=== PATIENT | male | born 1955 | race Hispanic/Latino ===

== ENCOUNTER → 2022-12-03 | Outpatient (CLI) | payer OTHER | END | disposition home or self-care (01) | LOC: SHCH 09:04 | PROVIDERS: ATTEND Internal Medicine Cardiovascular Disease | DX: I65.23 Occlusion and stenosis of bilateral carotid arteries (principal) | CPT/HCPCS: 93880 ==

== ENCOUNTER → 2024-08-09 | Outpatient (CLI) | payer OTHER ==
[~2024-08-09] MED LIST: APIX5TAB PO; ATOR40TA71 PO; DILT60TA3 PO; FAMO20TA8 PO; FURO40TA5 PO; LEVO150 PO; LINA5TAB PO; LISI10TA24 PO; METO-409 PO; TAMS-1 PO
--- NOTE | 2024-08-09 18:40 | HMCSR ---
APPROVED REPORT Right Lower Extremity Venous Study for DVT., Venous Competence. Vein Imaging CFV (R): Normal flow, augmentation and compression. No evidence of DVT, Diameter 14.1 mm SFJ (R): Normal flow, augmentation and compression. No evidence of DVT. FEM (R): Normal flow, augmentation and compression. No evidence of DVT. POP (R): Normal flow, augmentation and compression. No evidence of DVT. DFV (R): Normal flow, augmentation and compression. No evidence of DVT. PTV (R): Normal flow, augmentation and compression. No evidence of DVT. Peroneals (R): Normal flow, augmentation and compression. No evidence of DVT. GAS (R): Normal flow, augmentation and compression. No evidence of DVT. CFV (L): Normal flow, augmen tation and compression. No evidence of DVT. Technologist Impression The deep veins of the right lower extremity appear patent and compressible without evidence of thromb us. Pulsatile waveforms noted. RGSV Junction 5.3 mm 0 ms Mid thigh 3.4 mm 0 ms Knee 3.6 mm 0 ms Mid- calf 2.0 mm 0 ms RSSV Prox 2.3 mm 0 ms Mid 2.6 mm 0 ms Conclusion As above. Conclusion As above.
== END | disposition home or self-care (01) ==
LOC: SHCH 10:56
PROVIDERS: ATTEND Internal Medicine Cardiovascular Disease
DX: R60.9 Edema, unspecified (principal)
CPT/HCPCS: 93971

== ENCOUNTER → 2024-11-11 | Outpatient (CLI) | payer OTHER ==
--- NOTE | 2024-11-11 14:39 | HMCSR ---
APPROVED REPORT Height: 5 ft 6in Weight: 210 lbs TEST INDICATIONS I25.5 ISCHEMIC CARDIOMYOPATHY The imaging protocol used to acquire images was Rest Tc-99m/stress Tc-99m 1 day Consent: The procedure was explained and understood by the patient. Informerd consent was witnessed Liza Mejia RN First, low dose rest was performed then high dose stress. RESTING DATA: The resting ekg shows: Atrial Fibrillation Rest SPECT myocardial perfusion imaging was performed in supine position 87 minutes following the int ravenous injection of 12.2 mCi of Tc-99 Sestamibi. Time of rest injection: 08:40: Date: 11/11/2024 Time of rest imagin:07: Date: 11/11/2024 PHARMACOLOGIC STRESS: Pharmacologic stress test was performed by injecting regadenoson 0.4 mg IV push followed by the intra venous injection of 31.0 mCi of Tc-99 Sestamibi. Time of stress injection: 11:10: Date: 11/11/2024 Time of stress imagin:29: Date: 11/11/2024 Heart Rate at time of stress injection: 106 bpm. Gated Stress SPECT was performed 79 minutes after stress injection. The images were gated to evaluate regional wall motion and calculate left ventricular ejection fracti on. STRESS DETAILS Reason for Termination: Infusion complete Stress Symptoms: Nausea Max HR Achieved: 107 bpm % of APMHR Achieved: 71 Max Blood Pressure: 139/87 mmHg Stress ECG: Atrial Fibrillation Conclusion Inferior infarct Mild anterior ischemia Mild apical ischemia Dilated LV at rest and stress Infeiror hypokinesis No increased lug uptake LV ejection fraction 33%
[2024-11-11] MEDS: REGADENOSON 0.4 MG/5 ML PF SYG IVP ONE (15:50)
== END | disposition home or self-care (01) ==
LOC: SHCH 08:20
PROVIDERS: ATTEND Internal Medicine Cardiovascular Disease
DX: I48.91 Unspecified atrial fibrillation (principal); I25.9 Chronic ischemic heart disease, unspecified; I25.5 Ischemic cardiomyopathy; I50.22 Chronic systolic (congestive) heart failure; I99.8 Other disorder of circulatory system
CPT/HCPCS: 78452; 93017; J2785; A9500 ×2

== ENCOUNTER 2025-01-08 05:43 | Day surgery (SDC) | payer OTHER ==
[2025-01-06 10:17] LABS: BASOPHILS # (AUTO) 0.06 K/uL (0.00-0.20); BASOPHILS % (AUTO) 0.8 % (0.0-5.0); EOSINOPHILS # (AUTO) 0.19 K/uL (0.00-0.70); EOSINOPHILS % (AUTO) 2.4 % (0.0-8.0); HEMATOCRIT 46.1 % (42-54); IMMATURE GRANULOCYTE ABSOLUTE 0.04 K/uL (0-1); LYMPHOCYTES % (AUTO) 25.7 % (21.0-51.0); MEAN CORPUSCULAR HEMOGLOBIN 27.2 pg (27.0-33.0); MEAN CORPUSCULAR HGB CONC 31.2 g/dL (32.0-36.0); MONOCYTES # (AUTO) 0.5 K/uL (0.1-1.0); MONOCYTES % (AUTO) 6.5 % (3.0-13.0); NEUTROPHILS % (AUTO) 64.1 % (40.0-77.0); PLATELET COUNT (AUTO) 330 K/uL (130-400); RED CELL DISTRIBUTION WIDTH 23.8 % (11.0-15.5); WHITE BLOOD COUNT (AUTO) 7.8 K/uL (4.8-10.8)
[2025-01-06 10:22] LABS: APPEARANCE,URINE CLEAR (CLEAR); BILIRUBIN,URINE NEGATIVE (NEGATIVE); COLOR,URINE YELLOW (YELLOW); GLUCOSE, URINE (UA) NEGATIVE (NEGATIVE); KETONES,URINE NEGATIVE (NEGATIVE); LEUKOCYTE ESTERASE ,URINE NEGATIVE Leu/uL (NEGATIVE); NITRATE,URINE NEGATIVE (NEGATIVE); OCCULT BLOOD,URINE NEGATIVE (NEGATIVE); PH,URINE 5.5 (5.0-8.0); PROTEIN,URINE NEGATIVE (NEGATIVE); UROBILINOGEN,URINE 0.2 mg/dL (0.2-1.0)
[2025-01-06 10:24] VITALS: BP 134/82; PULSE 141; RESP 18; TEMP 97.8
[2025-01-06 10:28] LABS: CREATININE 1.3 mg/dL (0.5-1.3); INR 1.12 (0.85-1.15); PROTHROMBIN TIME 11.7 SEC (9.6-11.6)
[2025-01-06 10:29] LABS: PARTIAL THROMBOPLASTIN TIME 30.1 SEC (26.3-35.5)
[2025-01-06 10:44] LABS: ADD UA MICROSCOPIC NO
[2025-01-06 11:24] LABS: B-TYPE NATRIURETIC PEPTIDE 293 pg/mL (0-100)
--- NOTE | 2025-01-06 11:52 | EKG ---
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1955 Requested By: SILAS SIU Order Number: [id number] Reading MD: Malathi Kenney Measurements Intervals [place] Rate: 141 P: 0 NM: 0 QRS: -35 QRSD: 114 T: -7 QT: 340 QTc: 522 Interpretive Statements Atrial fibrillation with rapid ventricular response Incomplete right bundle branch block Inferior infarct, old Prolonged QT interval Compared to ECG 10/25/2023 20:00:53 Incomplete right bundle-branch block now present Prolonged QT interval now present Myocardial infarct finding still present Electronically Signed On 01-06-2025 12:24:32 CDT by Malathi Kenney Please click the below link to view image of tracing.
--- NOTE | 2025-01-06 11:57 | HMCIMG ---
CHEST 1VW HISTORY: Preop COMPARISON: 10/30/2023 FINDINGS: A frontal projection of the chest was obtained. Prominent interstitial markings are seen with possible superimposed infiltrates. The heart is borderline enlarged. Degenerative changes are seen. Aortic calcifications are seen. IMPRESSION: 1. Prominent interstitial markings are seen with possible superimposed infiltrates.
--- NOTE | 2025-01-07 11:41 | NUR ---
RE: LABS/CXR REPORTED CXR RESULTS AND BUN 17/CREAT 1.3 TO CHET GAMA NP. NO NEW ORDERS RECEIVED.
[~2025-01-08] VITALS: Ht 165.1 cm; Wt 91.6 kg
[2025-01-08] VITALS (10 sets, daily range): BP systolic 115–142; BP diastolic 65–89; PULSE 115–142; RESP 13–21; TEMP 97.1–97.2
[~2025-01-08 05:43] MED LIST changes: +AMIO200T68 PO; +DILT120C78 PO; -DILT60TA3 PO; -FAMO20TA8 PO; -FURO40TA5 PO; -LEVO150 PO; -LISI10TA24 PO; +METO5TAB7 PO; +SPIR100T5 PO; -TAMS-1 PO; +TAMS-55 PO
[2025-01-08] MEDS: 0.9%NACL 1000ML 1,000 ML IV SCH (06:45)
[2025-01-08] MEDS ORDERED: HEParin 10,000 UNIT/10ML (1,000 UNIT/ML) VIAL ONE (07:06)
[2025-01-08] MEDS ORDERED: IOHEXOL 350 MG/ML 100ML INFUS..BTL IV ONE (07:06)
[2025-01-08] MEDS ORDERED: LIDOCAINE HCL 400MG/20ML VIAL ONE (07:06)
[2025-01-08] MEDS ORDERED: HEParin-NS 1,000 UNIT/500 ML 1,000 ML IV ONE (07:06)
[2025-01-08] MEDS ORDERED: MIDAZOLAM HCL 1 MG/ML 2ML VIAL ONE (07:34)
[2025-01-08] MEDS ORDERED: IOHEXOL-350 75 ML VIAL IV ONE (07:45)
--- NOTE | 2025-01-08 08:22 | PRN ---
Cath Procedure Report CATH PROCEDURE REPORT CARDIAC CATHETERIZATION REPORT Date of Service: Jan 08, 2025 After informed consent the patient was prepped and draped in the usual fashion. He received 1 mg of Versed for conscious sedation. Received 16 cc of 2% xylocaine in the right inguinal area. A six [place] sheath was introduced into the right femoral artery. A Irene four right six [place]ian diagnostic catheter w as advanced over guidewire to the aortic root. Wire was removed and catheter engaged into the [employer] right coronary artery which was visualized in multiple planes. The catheter was removed and a Irene four left six Liberian diagnostic catheter was then advanced over guidewire to the aortic root. Wire was removed and catheter engaged into the left main coronary artery. The left coronary system was visualized in multiple planes the catheter was removed. A pigtail catheter was then advanced over guidewire to the aortic root and across the aortic valve. Wire was removed and hemodynamics measured. A ventriculogram in the [place] projection was performed. Pullback with continuous hemodynamic monitoring was performed and catheter was removed. A sheathogram was performed and six [place]ian Angio-Seal closure device applied. The entire procedure was well tolerated without complications. Findings: The right coronary artery is a right-dominant vessel. It has a 40% proximal stenosis 70% mid stenosis before the acute marginal branch. The PDA has a 70% mid stenosis in the posterolateral branch was free of obstruction. The left main has a 60-70% distal stenosis. The LAD has an 80% ostial stenosis remainder of the vessel is free of obstruction and gives rise to normal diagonal branches. There was a ramus intermediate branch with an 80% ostial stenosis. The circumflex artery is a nondominant vessel and has a very distal 80% stenosis in the ongoing circumflex artery. First obtuse marginal artery has a 80% ostial stenosis. The 2nd obtuse marginal artery is free of obstruction. LV ejection fraction was estimated at 30% over the LV-gram was suboptimal. He has diffuse hypokinesis and akinesis of the infero base. There was 2+ mitral regurgitation. 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 Patient is in atrial fibrillation. We will plan on obtain a 2D echo to more accurately assess ejection fraction and mitral regurgitation. Surgical opinion will be obtained. Report dictated by Silas SIU,SILAS Jurado MD Jan 08, 2025 08:22
[2025-01-08] MEDS ORDERED: GLUCAGON 1MG KIT 1 MG ML IM PRN (08:30)
[2025-01-08] MEDS ORDERED: DEXTROSE 50%-WATER 50 ML DISP.SYRIN IV PRN (08:30)
--- NOTE | 2025-01-08 10:30 | NUR ---
urinary: voided 250cc yellow color urine per urinal without difficulty.
--- NOTE | 2025-01-09 08:42 | HMCSR ---
APPROVED REPORT EXAM: Two-dimensional and M-mode echocardiogram with Doppler and color Doppler. INDICATION ICD: Coronary artery disease, Congestive heart failure 2D Dimensions RVDd4.0 cmLVEF(%)31.5 (>50%)LVEF(%, simp.)31 % IVSd1.0 (0.7-1.1cm)FS(%)15 %LA ESV INDEX (BP)66.68 mL/m2 LVDd4.6 (3.8-5.6cm)LA (2D)6.0 (1.6-4.0cm) PWd1.1 (0.7-1.1cm)LVOT diam2.0 (1.8-2.4cm) IVSs0.9 cmIVC diam2.4 cm LVDs3.9 (2.5-4.0cm) PWs1.2 cm Deformation Strain Apical 4-2.0 % Apical 2-3.0 % Apical 3-3.0 % Global Strain-3.0 % M-Mode Dimensions EPSS1.7 cm LA (MM)5.9 (1.6-4.0cm) Ao Root(MM)3.6 (2.0-3.7cm) Aortic Valve AoV Vmax0.7 m/Kiara Peak GR2.0 mmHgLVOT Vmax0.5 m/s AoV VTI0.1 mAo Mean GR1.3 mmHgLVOT VTI0.07 m ARMANDO (VMAX)2.2 cm2AVA (VTI) 2.2 cm2 Mitral Valve MV E Ogyl351.0 cm/sDECEL Ikxx785 msMR [id number] cm2 P 1/2 T54 ms MVA (PHT)4.1 cm2 TDI E/E' Kvyfao70.0E/E' Letgaco37.9 Medial E' Peak V2.00 cm/sLateral E' Peak V9.00 cm/s Pulmonary Valve PV Vmax0.3 m/s Tricuspid Valve TR Vmax3.5 m/sRAP (EST) 15 bxYxPRGH10.5 mmHg TR Peak GR55.5 mmHg Left Ventricle The left ventricle is normal size. There is normal left ventricular wall thickness. LVEF is 25-30%. S everely reduced GLS -2.0%. 3D volume EF 29%. The LV diastolic function was unable to be assessed due to atrial arrhythmia. Right Ventricle The right ventricle is normal size. Right ventricular systolic function is severely reduced. Atria The left atrium is severely dilated. The right atrium is moderately dilated. Aortic Valve The aortic valve is normal in structure. No aortic regurgitation is present. There is no aortic valvu lar stenosis. Mitral Valve Mitral valve leaflets open well. Posterior mitral valve annular calcification noted. There is severe mitral valve regurgitation noted. There is no mitral valve stenosis. Tricuspid Valve The tricuspid valve is normal in structure. There is moderate tricuspid valve regurgitation noted. Pulmonic Valve The pulmonary valve is normal in structure. There is trace of pulmonic valvular regurgitation. Great Vessels The aortic root is normal in size. The IVC is normal in size and collapses >50% with inspiration. Pericardium There is no pericardial effusion. Other Information Quality : Adequate Conclusion LVEF is 25-30%. Severely reduced GLS -2.0%. 3D volume EF 29%. There is severe mitral valve regurgitation noted. There is moderate tricuspid valve regurgitation noted.
== END 2025-01-08 11:12 | disposition home or self-care (01) ==
LOC: DAH 05:43
PROVIDERS: ATTEND Internal Medicine Cardiovascular Disease
DX: R94.39 Abnormal result of other cardiovascular function study (principal); I25.10 Atherosclerotic heart disease of native coronary artery without angina pectoris; I25.5 Ischemic cardiomyopathy; I08.1 Rheumatic disorders of both mitral and tricuspid valves; I50.22 Chronic systolic (congestive) heart failure; I45.10 Unspecified right bundle-branch block; E11.9 Type 2 diabetes mellitus without complications; E03.9 Hypothyroidism, unspecified; I48.0 Paroxysmal atrial fibrillation; E78.5 Hyperlipidemia, unspecified; Z79.01 Long term (current) use of anticoagulants; Z79.899 Other long term (current) drug therapy
CPT/HCPCS: 80048; 83880; 85025; 85610; 85730; 81003; 36415; 71045; 93005; 93458; 82948 ×2; 93306; C1894; C1760; J3490; J7030; J2250; J1644; Q9967; A4215; A4222; A4221; A4663; A4216; A4606; Q9965; A4223 ×3; 76376; 93356; 99156; 99157